=== PATIENT | male | born 1950 | race Hispanic/Latino ===

== ENCOUNTER 2020-08-06 06:01 | Observation (INO) | payer OTHER, MEDICARE ==
[~2020-08-06] VITALS: Ht 172.7 cm; Wt 119.3 kg
[2020-08-06 06:19] LABS: BASOPHILS % (AUTO) 0.9 % (0.0-5.0); EOSINOPHILS % (AUTO) 2.3 % (0.0-8.0); HEMATOCRIT 36.3 % (42-54); LYMPHOCYTES % (AUTO) 23.3 % (21.0-51.0); MEAN CORPUSCULAR HEMOGLOBIN 30.1 pg (27.0-33.0); MEAN CORPUSCULAR HGB CONC 32.5 g/dL (32.0-36.0); MEAN CORPUSCULAR VOLUME 92.6 fL (79-99); NEUTROPHILS % (AUTO) 64.2 % (40.0-77.0); PLATELET COUNT (AUTO) 351 K/uL (130-400); RED BLOOD CELL COUNT(AUTO) 3.92 MIL/uL (4.50-6.20); RED CELL DISTRIBUTION WIDTH 12.2 % (11.0-15.5); WHITE BLOOD COUNT (AUTO) 11.8 K/uL (4.8-10.8)
[2020-08-06 06:35] LABS: BILIRUBIN,TOTAL 0.9 mg/dL (0.2-1.0); CREATININE 1.2 mg/dL (0.5-1.5); POTASSIUM 4.4 mmol/L (3.5-5.1); TOTAL PROTEIN, SERUM 7.4 g/dL (6.0-8.3)
[2020-08-06 06:50] LABS: B-TYPE NATRIURETIC PEPTIDE 28 pg/mL (0-100)
[2020-08-06 07:00] LABS: INR 1.04 (0.85-1.15); PROTHROMBIN TIME 11.3 SEC (9.6-11.6)
[2020-08-06 07:01] LABS: PARTIAL THROMBOPLASTIN TIME 27.7 SEC (26.3-35.5)
[2020-08-06] MEDS ORDERED: IOHEXOL 350 MG/ML 100ML INFUS..BTL IV ONE (07:11)
[2020-08-06] MEDS ORDERED: LABETALOL 20 MG/4 ML DISP.SYRIN IV PRN (08:00)
[2020-08-06] MEDS ORDERED: ACETAMINOPHEN 650 MG SUPPOSITORY RC PRN (08:00)
[2020-08-06] MEDS ORDERED: MORPHINE SULFATE 2 MG/ML 1ML SYG IVP PRN (08:00)
[2020-08-06] MEDS ORDERED: ACETAMINOPHEN 325 MG TAB PO PRN (08:00)
[2020-08-06] MEDS: SODIUM CHLORIDE 0.9% 1000ML 1,000 ML IV SCH ×2 (08:00→21:20)
[2020-08-06] MEDS ORDERED: CLONIDINE HCL 0.1 MG TABLET PO PRN (08:00)
[2020-08-06] MEDS ORDERED: VANCOMYCIN 1GM+NS 250ML IV SCH (08:00)
[2020-08-06] MEDS ORDERED: VANCOMYCIN PROTOCOL PER PHARMACY IV SCH (08:00)
[2020-08-06] MEDS ORDERED: ONDANSETRON HCL 4 MG/2 ML VIAL IVP PRN (08:00)
[2020-08-06 08:39] LABS: APPEARANCE,URINE Clear (CLEAR); BILIRUBIN,URINE Negative (NEGATIVE); COLOR,URINE Yellow (YELLOW); GLUCOSE, URINE (UA) Negative (NEGATIVE); KETONES,URINE Negative (NEGATIVE); LEUKOCYTE ESTERASE ,URINE Negative (NEGATIVE); NITRATE,URINE Negative (NEGATIVE); OCCULT BLOOD,URINE Negative (NEGATIVE); PH,URINE 6.5 (5.0-8.0); PROTEIN,URINE Negative (NEGATIVE)
[2020-08-06] MEDS ORDERED: ASPIRIN 81MG TAB.CHEW PO SCH (09:00)
[2020-08-06] MEDS: ENOXAPARIN SODIUM 40 MG/0.4 ML SYRINGE SQ SCH (09:00)
[2020-08-06] MEDS: PANTOPRAZOLE SODIUM 40 MG TABLET.DR PO SCH (09:00)
[2020-08-06 09:06] LABS: CREATINE KINASE, TOTAL 114 U/L (21-232); MYOGLOBIN 47 ng/mL (10-92); TROPONIN I < 0.04 ng/mL (0.00-0.06)
[2020-08-06] MEDS ORDERED: SODIUM CHLORIDE 0.9% 1000ML 1,000 ML IV ONE (09:20)
[2020-08-06] MEDS ORDERED: ZOSYN 3.375GM+NS 50ML 50 ML IV ONE (09:20)
[2020-08-06] MEDS ORDERED: PANTOPRAZOLE SODIUM 40 MG TABLET.DR ONE (09:45)
[2020-08-06] MEDS ORDERED: ENOXAPARIN SODIUM 40 MG/0.4 ML SYRINGE SQ ONE (09:45)
[2020-08-06] MEDS ORDERED: ASPIRIN 81MG TAB.CHEW ONE (09:45)
[2020-08-06 10:30] VITALS: BP 127/68
[2020-08-06] MEDS ORDERED: PANT40TA54 PO (11:57)
[2020-08-06] MEDS ORDERED: SIMV-46 PO (11:57)
[2020-08-06] MEDS ORDERED: BISA10SU11 RC (11:57)
[2020-08-06] MEDS ORDERED: CELE-84 PO (11:57)
[2020-08-06] MEDS ORDERED: METO50TA18 PO (11:57)
[2020-08-06] MEDS ORDERED: KETO30VI4 IM (11:57)
[2020-08-06] MEDS ORDERED: ACET-2123 PO (11:57)
[2020-08-06] MEDS ORDERED: PREG50CA63 PO (11:57)
[2020-08-06] MEDS ORDERED: FAMO20TA8 PO (11:57)
[2020-08-06] MEDS ORDERED: POLY17PO52 PO (11:57)
[2020-08-06] MEDS ORDERED: AEC81 PO (11:57)
[2020-08-06] MEDS ORDERED: HYDR12.54 PO (11:57)
[2020-08-06] MEDS ORDERED: LISI20TA24 PO (11:57)
[2020-08-06] MEDS ORDERED: CHOL100046 PO (11:57)
[2020-08-06] MEDS ORDERED: HYDR-4060 PO (12:06)
[2020-08-06] MEDS ORDERED: HYDROCODONE/ACETAMINOPHEN 5/325 MG TAB PO PRN ×2 (12:15→13:45)
[2020-08-06] MEDS: ALBUTEROL SULFATE 0.083% 2.5 MG/3 ML INH IH SCH ×2 (12:37→18:18)
[2020-08-06] MEDS ORDERED: COMPOUND IV REFRIGERATED 1 EACH IVSOLN MISC PRN (12:45)
[2020-08-06] MEDS: HYDROCODONE/ACETAMINOPHEN 10/325 MG TAB PO PRN ×2 (12:50→21:24)
[2020-08-06] MEDS ORDERED: VANCOMYCIN 2 GM in SODIUM CHLORIDE 0.9% 500ML 500 ML IV ONE (13:00)
[2020-08-06] MEDS ORDERED: ACETAMINOPHEN EXTRA STRENGTH 500 MG TABLET PO PRN (13:45)
[2020-08-06] MEDS ORDERED: BISACODYL 10 MG SUPP.RECT RC PRN (13:45)
[2020-08-06 14:01] LABS: CREATINE KINASE, TOTAL 92 U/L (21-232); MYOGLOBIN 46 ng/mL (10-92); TROPONIN I < 0.04 ng/mL (0.00-0.06)
[2020-08-06 16:00] VITALS: BP 121/70
[2020-08-06] MEDS: ZOSYN 3.375GM +NS 50ML IV SCH (18:24)
[2020-08-06 20:00] VITALS: BP 129/83
[2020-08-06 20:51] LABS: CREATINE KINASE, TOTAL 89 U/L (21-232)
[2020-08-06] MEDS ORDERED: FAMOTIDINE 20MG TAB 20 MG TAB PO SCH (21:00)
[2020-08-06] MEDS: SIMVASTATIN 20 MG TABLET PO SCH (21:24)
[2020-08-06] MEDS: CELECOXIB 200 MG CAP PO SCH (21:24)
[2020-08-06] MEDS: VANCOMYCIN 750MG + NS 250 ML IV SCH ×2 (21:24)
[2020-08-06 22:24] LABS: MYOGLOBIN 39 ng/mL (10-92); TROPONIN I < 0.04 ng/mL (0.00-0.06)
[2020-08-07] VITALS: BP 114/63
[2020-08-07] MEDS: ZOSYN 3.375GM +NS 50ML IV SCH ×2 (01:07→08:54)
[2020-08-07 04:00] VITALS: BP 115/56
[2020-08-07 05:31] LABS: HEMATOCRIT 34.6 % (42-54); MEAN CORPUSCULAR HEMOGLOBIN 29.4 pg (27.0-33.0); MEAN CORPUSCULAR HGB CONC 31.8 g/dL (32.0-36.0); MEAN CORPUSCULAR VOLUME 92.5 fL (79-99); RED BLOOD CELL COUNT(AUTO) 3.74 MIL/uL (4.50-6.20); RED CELL DISTRIBUTION WIDTH 12.3 % (11.0-15.5); WHITE BLOOD COUNT (AUTO) 9.6 K/uL (4.8-10.8)
[2020-08-07 05:33] LABS: INR 1.04 (0.85-1.15); PROTHROMBIN TIME 11.3 SEC (9.6-11.6)
[2020-08-07 05:51] LABS: CREATININE 1.1 mg/dL (0.5-1.5); MAGNESIUM 1.9 mg/dL (1.80-2.40); POTASSIUM 4.4 mmol/L (3.5-5.1)
[2020-08-07 08:04] VITALS: BP 127/71
[2020-08-07] MEDS: ASPIRIN 81 MG EC TAB PO SCH (08:40)
[2020-08-07] MEDS: CELECOXIB 200 MG CAP PO SCH ×2 (08:41→20:26)
[2020-08-07] MEDS: METOPROLOL SUCCINATE 50 MG TAB.SR.24H PO SCH (08:41)
[2020-08-07] MEDS: PANTOPRAZOLE SODIUM 40 MG TABLET.DR PO SCH (08:41)
[2020-08-07] MEDS: PREGABALIN 25 MG CAP PO SCH (08:41)
[2020-08-07] MEDS: HYDROCODONE/ACETAMINOPHEN 10/325 MG TAB PO PRN ×2 (08:42→20:27)
[2020-08-07] MEDS: POLYETHYLENE GLYCOL 3350 17 GM POWD.PACK PO SCH (08:43)
[2020-08-07] MEDS: VANCOMYCIN 750MG + NS 250 ML IV SCH ×2 (08:43)
[2020-08-07] MEDS: ENOXAPARIN SODIUM 40 MG/0.4 ML SYRINGE SQ SCH (08:43)
[2020-08-07] MEDS: (Cholecalciferol (Vitamin D3) (Vitamin D3) 25 MCG) PO SCH (08:46)
[2020-08-07] MEDS ORDERED: NON-FORMULARY MEDICATION 1 EACH (Cholecalciferol (Vitamin D3) (Vitamin D3) 25 MCG) PO SCH (09:00)
[2020-08-07] MEDS ORDERED: NON-FORMULARY MEDICATION 1 EACH (Pregabalin 50 MG) PO SCH (09:00)
[2020-08-07] MEDS ORDERED: NON-FORMULARY MEDICATION 1 EACH (Simvastatin 40 MG) PO SCH (09:00)
[2020-08-07] MEDS ORDERED: LISINOPRIL 20 MG TABLET PO SCH (09:00)
[2020-08-07] MEDS ORDERED: PANTOPRAZOLE SODIUM 40 MG TABLET.DR PO SCH (09:00)
[2020-08-07 11:31] VITALS: BP 115/62
[2020-08-07] MEDS: ALBUTEROL SULFATE 0.083% 2.5 MG/3 ML INH IH SCH ×3 (12:00→18:00)
[2020-08-07] MEDS: HYDROCODONE/ACETAMINOPHEN 5/325 MG TAB PO PRN (13:34)
[2020-08-07 16:26] VITALS: BP 118/49
[2020-08-07 20:17] VITALS: BP 137/83
[2020-08-07] MEDS: SIMVASTATIN 20 MG TABLET PO SCH (20:26)
[2020-08-07] MEDS: DEXAMETHASONE 4 MG TAB PO SCH (20:28)
[2020-08-08] MEDS: ALBUTEROL SULFATE 0.083% 2.5 MG/3 ML INH IH SCH
[2020-08-08 00:40] VITALS: BP 158/72
[2020-08-08 04:52] VITALS: BP 103/64
[2020-08-08 04:55] LABS: HEMATOCRIT 37.4 % (42-54); MEAN CORPUSCULAR HEMOGLOBIN 29.8 pg (27.0-33.0); MEAN CORPUSCULAR HGB CONC 32.6 g/dL (32.0-36.0); MEAN CORPUSCULAR VOLUME 91.4 fL (79-99); RED BLOOD CELL COUNT(AUTO) 4.09 MIL/uL (4.50-6.20); WHITE BLOOD COUNT (AUTO) 13.6 K/uL (4.8-10.8)
[2020-08-08 05:06] LABS: CREATININE 1.1 mg/dL (0.5-1.5); POTASSIUM 5.7 mmol/L (3.5-5.1)
[2020-08-08] MEDS: HYDROCODONE/ACETAMINOPHEN 10/325 MG TAB PO PRN (05:13)
[2020-08-08 07:30] VITALS: BP 114/70
[2020-08-08] MEDS: (Cholecalciferol (Vitamin D3) (Vitamin D3) 25 MCG) PO SCH (09:00)
[2020-08-08] MEDS ORDERED: SODIUM POLYSTYRENE SULFONATE 15 GM/60 ML ML PO SCH ×2 (09:00→15:00)
[2020-08-08] MEDS: POLYETHYLENE GLYCOL 3350 17 GM POWD.PACK PO SCH (09:37)
[2020-08-08] MEDS: ASPIRIN 81 MG EC TAB PO SCH (09:38)
[2020-08-08] MEDS: ENOXAPARIN SODIUM 40 MG/0.4 ML SYRINGE SQ SCH (09:38)
[2020-08-08] MEDS: DEXAMETHASONE 4 MG TAB PO SCH (09:39)
[2020-08-08] MEDS: HYDROCODONE/ACETAMINOPHEN 5/325 MG TAB PO PRN (09:39)
[2020-08-08] MEDS: METOPROLOL SUCCINATE 50 MG TAB.SR.24H PO SCH (09:39)
[2020-08-08] MEDS: PANTOPRAZOLE SODIUM 40 MG TABLET.DR PO SCH (09:39)
[2020-08-08] MEDS: CELECOXIB 200 MG CAP PO SCH (09:39)
[2020-08-08] MEDS: PREGABALIN 25 MG CAP PO SCH (09:40)
[2020-08-08] MEDS ORDERED: SODIUM POLYSTYRENE SULFONATE 15 GM/60 ML ML ONE (09:46)
[2020-08-08 11:00] VITALS: BP 112/73
[2020-08-08 16:00] VITALS: BP 119/69
== END 2020-08-08 19:32 ==
LOC: EDH 06:01 → INTOOBSV 07:58 → EDHIP 07:58 → 4CH 10:19
PROVIDERS: ADMIT Internal Medicine Critical Care Medicine; ATTEND Internal Medicine Critical Care Medicine
DX: R07.89 Other chest pain (principal); R06.02 Shortness of breath; R61 Generalized hyperhidrosis; I10 Essential (primary) hypertension; E11.9 Type 2 diabetes mellitus without complications; G47.33 Obstructive sleep apnea (adult) (pediatric); E78.5 Hyperlipidemia, unspecified; I25.10 Atherosclerotic heart disease of native coronary artery without angina pectoris; M17.12 Unilateral primary osteoarthritis, left knee; E66.01 Morbid (severe) obesity due to excess calories; E87.5 Hyperkalemia; E78.00 Pure hypercholesterolemia, unspecified; F17.200 Nicotine dependence, unspecified, uncomplicated; Z96.652 Presence of left artificial knee joint; Z95.5 Presence of coronary angioplasty implant and graft; Z98.49 Cataract extraction status, unspecified eye; Z79.82 Long term (current) use of aspirin; Z79.899 Other long term (current) drug therapy; Z68.39 Body mass index [BMI] 39.0-39.9, adult
CPT/HCPCS: 36415 ×3; 70450; 71045; 71275; 72141; 80048 ×2; 80053; 80061; 80202; 81003; 82550 ×3; 83036; 83605; 83690; 83735; 83874 ×3; 83880; 84100; 84132; 84145; 84484 ×5; 85025; 85027 ×2; 85610 ×2; 85651; 85730; 87040 ×2; 87088; 93005; 93970; 94640 ×2; 94664; 96365; 96366 ×3; 96368; 96372 ×2; 96375; 97039 ×4; 97116 ×4; 97161; 97530 ×4; 99285; G0378 ×57; G8978; G8979; G8980; G8981; G8982; G8983; J1650 ×3; J2543 ×4; J3370; J7030; J7040; J8540 ×2; Q9967; J7050

== ENCOUNTER 2021-02-21 06:18 | Observation (INO) | payer OTHER, MEDICARE ==
[2021-02-19 14:41] LABS: BASOPHILS % (AUTO) 1.3 % (0.0-5.0); EOSINOPHILS % (AUTO) 1.5 % (0.0-8.0); HEMATOCRIT 42.4 % (42-54); LYMPHOCYTES % (AUTO) 29.5 % (21.0-51.0); MEAN CORPUSCULAR HEMOGLOBIN 28.6 pg (27.0-33.0); MEAN CORPUSCULAR HGB CONC 32.1 g/dL (32.0-36.0); MEAN CORPUSCULAR VOLUME 89.1 fL (79-99); MONOCYTES % (AUTO) 7.2 % (3.0-13.0); NEUTROPHILS % (AUTO) 60.2 % (40.0-77.0); PLATELET COUNT (AUTO) 270 K/uL (130-400); RED BLOOD CELL COUNT(AUTO) 4.76 MIL/uL (4.50-6.20); RED CELL DISTRIBUTION WIDTH 13.4 % (11.0-15.5); WHITE BLOOD COUNT (AUTO) 7.8 K/uL (4.8-10.8)
[2021-02-19 14:49] LABS: CREATININE 0.9 mg/dL (0.5-1.5); POTASSIUM 4.1 mmol/L (3.5-5.1)
[2021-02-19 14:52] LABS: INR 1.03 (0.85-1.15); PROTHROMBIN TIME 11.2 SEC (9.6-11.6)
[2021-02-19 14:54] LABS: APPEARANCE,URINE Clear (CLEAR); BILIRUBIN,URINE Negative (NEGATIVE); COLOR,URINE Yellow (YELLOW); GLUCOSE, URINE (UA) Negative (NEGATIVE); KETONES,URINE Negative (NEGATIVE); LEUKOCYTE ESTERASE ,URINE Negative (NEGATIVE); NITRATE,URINE Negative (NEGATIVE); OCCULT BLOOD,URINE Negative (NEGATIVE); PROTEIN,URINE Negative (NEGATIVE)
[2021-02-20 13:04] VITALS: BP 151/86
[2021-02-21] VITALS (24 sets, daily range): BP systolic 125–160; BP diastolic 54–97
[~2021-02-21] VITALS: Ht 172.7 cm; Wt 160.6 kg
[~2021-02-21 06:18] MED LIST: AEC81 PO; CETI10TA57 PO; FLUT9.9S NS; LANS15CA17 PO; LISI1TAB51 PO; METO-391 PO; SIMV-46 PO
[2021-02-21] MEDS ORDERED: CEFAZOLIN SODIUM 1 GM VIAL ONE ×4 (06:53→18:33)
[2021-02-21] MEDS ORDERED: LACTATED RINGERS 1000ML 1,000 ML IV ONE (06:53)
[2021-02-21] MEDS ORDERED: TRANEXAMIC ACID 1000MG/10ML ONE ×2 (07:31→11:20)
[2021-02-21] MEDS ORDERED: MIDAZOLAM HCL 1 MG/ML 2ML VIAL ONE (08:17)
[2021-02-21] MEDS ORDERED: LIDOCAINE HCL-MPF 1% 5ML AMP IJ ONE (08:25)
[2021-02-21] MEDS ORDERED: SUCCINYLCHOLINE CHLORIDE 20 MG/ML 10 ML VIAL ONE (08:25)
[2021-02-21] MEDS ORDERED: ROCURONIUM 10MG/1ML SYR 10 MG/ML ML ONE (08:26)
[2021-02-21] MEDS ORDERED: FENTANYL CITRATE PF 50 MCG/1 ML 2ML VIAL ONE (08:26)
[2021-02-21] MEDS ORDERED: PROPOFOL 10 MG/ML 20ML VIAL IV ONE (08:26)
[2021-02-21] MEDS ORDERED: DEXAMETHASONE SOD PHOSPHATE 10MG/ML 1ML VIAL ONE (08:40)
[2021-02-21] MEDS: CEFAZOLIN SODIUM 1 GM VIAL IVP ONE ×2 (08:45→08:46)
[2021-02-21] MEDS ORDERED: NEOSTIGMINE 5MG/5ML SYR IV ONE (10:55)
[2021-02-21] MEDS ORDERED: FERROUS FUMARATE 324 MG TABLET PO PRN (11:00)
[2021-02-21] MEDS ORDERED: ONDANSETRON 4MG INJ IVP PRN (11:00)
[2021-02-21] MEDS ORDERED: POTASSIUM CHLORIDE 10% ELIXIR 20 MEQ/15 ML UDCUP PO PRN (11:00)
[2021-02-21] MEDS ORDERED: POTASSIUM CHLORIDE 20MEQ/100ML 100 ML IV PRN (11:00)
[2021-02-21] MEDS ORDERED: TEMAZEPAM 15 MG CAPSULE PO PRN (11:00)
[2021-02-21] MEDS ORDERED: LIDOCAINE HCL-MPF 1% 2ML VIAL IV PRN (11:00)
[2021-02-21] MEDS ORDERED: OXYCODONE HCL 5 MG TAB PO PRN (11:00)
[2021-02-21] MEDS ORDERED: DiphenhydrAMINE HCL 50 MG/ML VIAL IVP PRN (11:00)
[2021-02-21] MEDS ORDERED: KCL 20 MEQ ERTAB PO PRN (11:00)
[2021-02-21] MEDS ORDERED: CALCIUM CARB 500MG PO PRN (11:00)
[2021-02-21] MEDS: ACETAMINOPHEN 500 MG TABLET PO SCH ×2 (11:00→18:36)
[2021-02-21] MEDS: 0.9%NACL 1000ML 1,000 ML IV SCH ×2 (11:00→22:21)
[2021-02-21] MEDS ORDERED: ONDANSETRON 4MG INJ ONE (11:02)
[2021-02-21] MEDS ORDERED: MEPERIDINE-PF 25 MG/ML SYG ONE ×2 (11:27→11:56)
[2021-02-21] MEDS: KETOROLAC 15MG/ML VIAL (15MG/ML) IV PRN ×2 (12:48→20:13)
[2021-02-21] MEDS: OXYCODONE HCL 5 MG TAB PO PRN ×3 (13:32→22:19)
[2021-02-21] MEDS: TRAMADOL HCL 50 MG TABLET PO PRN (15:13)
[2021-02-21] MEDS: CEFAZOLIN 3GM /D5W 100ML 100 ML IV SCH (16:00)
[2021-02-21] MEDS: PREGABALIN 25 MG CAP PO SCH (20:10)
[2021-02-21] MEDS: CELECOXIB 200 MG CAP PO SCH (20:10)
[2021-02-21] MEDS ORDERED: ASPIRIN 81 MG EC TAB PO SCH (21:00)
[2021-02-21] MEDS ORDERED: FAMOTIDINE 20MG TAB PO SCH (21:00)
[2021-02-22] VITALS: BP 139/73
[2021-02-22] MEDS ORDERED: CEFAZOLIN SODIUM 1 GM VIAL ONE (00:24)
[2021-02-22] MEDS: CEFAZOLIN 3GM /D5W 100ML 100 ML IV SCH (00:35)
[2021-02-22] MEDS: TRAMADOL HCL 50 MG TABLET PO PRN ×2 (00:39→08:38)
[2021-02-22] MEDS: ACETAMINOPHEN 500 MG TABLET PO SCH ×3 (03:28→19:22)
[2021-02-22 04:00] VITALS: BP 123/72
[2021-02-22 04:57] LABS: HEMATOCRIT 36.2 % (42-54); MEAN CORPUSCULAR HEMOGLOBIN 28.9 pg (27.0-33.0); MEAN CORPUSCULAR HGB CONC 32.6 g/dL (32.0-36.0); MEAN CORPUSCULAR VOLUME 88.5 fL (79-99); RED BLOOD CELL COUNT(AUTO) 4.09 MIL/uL (4.50-6.20); WHITE BLOOD COUNT (AUTO) 16.5 K/uL (4.8-10.8)
[2021-02-22 05:04] LABS: CREATININE 1.4 mg/dL (0.5-1.5); POTASSIUM 4.4 mmol/L (3.5-5.1)
[2021-02-22] MEDS: OXYCODONE HCL 5 MG TAB PO PRN ×3 (06:24→23:43)
[2021-02-22] MEDS: 0.9%NACL 1000ML 1,000 ML IV SCH (06:30)
[2021-02-22 07:30] VITALS: BP 100/71
[2021-02-22] MEDS: PANTOPRAZOLE 40 MG TAB DR PO SCH (08:36)
[2021-02-22] MEDS: METOPROLOL SUCCINATE 50 MG TAB.SR.24H PO SCH (08:36)
[2021-02-22] MEDS: CETIRIZINE HCL 5 MG TABLET PO SCH (08:36)
[2021-02-22] MEDS: TAMSULOSIN HCL 0.4 MG CAP.ER.24H PO SCH (08:38)
[2021-02-22] MEDS: PREGABALIN 25 MG CAP PO SCH ×2 (08:39→19:21)
[2021-02-22] MEDS: ASPIRIN 81 MG EC TAB PO SCH (08:40)
[2021-02-22] MEDS: SIMVASTATIN 20 MG TABLET PO SCH (08:40)
[2021-02-22] MEDS: CELECOXIB 200 MG CAP PO SCH ×2 (08:41→19:21)
[2021-02-22] MEDS: HYDROCHLOROTHIAZIDE 25 MG TABLET PO SCH (08:43)
[2021-02-22] MEDS: LISINOPRIL 20 MG TABLET PO SCH (08:44)
[2021-02-22] MEDS: POLYETHYLENE GLYCOL 3350 17 GM POWD.PACK PO SCH (08:46)
[2021-02-22 11:00] VITALS: BP 92/55
[2021-02-22 16:00] VITALS: BP 110/63
[2021-02-22 19:49] VITALS: BP 107/54
[2021-02-22] MEDS: FLUTICASONE PROPIONATE 50MCG/SPRAY 16 GM BOTTLE EN SCH (21:23)
[2021-02-23] VITALS: BP 109/61
[2021-02-23 04:00] VITALS: BP 98/63
[2021-02-23] MEDS: ACETAMINOPHEN 500 MG TABLET PO SCH ×2 (05:56→14:00)
[2021-02-23 07:50] VITALS: BP 149/74
[2021-02-23] MEDS: CETIRIZINE HCL 5 MG TABLET PO SCH (08:29)
[2021-02-23] MEDS: TAMSULOSIN HCL 0.4 MG CAP.ER.24H PO SCH (08:29)
[2021-02-23] MEDS: PREGABALIN 25 MG CAP PO SCH (08:29)
[2021-02-23] MEDS: SIMVASTATIN 20 MG TABLET PO SCH (08:29)
[2021-02-23] MEDS: PANTOPRAZOLE 40 MG TAB DR PO SCH (08:29)
[2021-02-23] MEDS: LISINOPRIL 20 MG TABLET PO SCH (08:30)
[2021-02-23] MEDS: HYDROCHLOROTHIAZIDE 25 MG TABLET PO SCH (08:35)
[2021-02-23] MEDS: METOPROLOL SUCCINATE 50 MG TAB.SR.24H PO SCH (08:35)
[2021-02-23] MEDS: CELECOXIB 200 MG CAP PO SCH (08:35)
[2021-02-23] MEDS: ASPIRIN 81 MG EC TAB PO SCH (08:35)
[2021-02-23] MEDS: OXYCODONE HCL 5 MG TAB PO PRN ×2 (08:36→14:03)
[2021-02-23] MEDS: POLYETHYLENE GLYCOL 3350 17 GM POWD.PACK PO SCH (08:37)
[2021-02-23] MEDS: FLUTICASONE PROPIONATE 50MCG/SPRAY 16 GM BOTTLE EN SCH (08:37)
[2021-02-23 11:08] VITALS: BP 98/72
[2021-02-23] MEDS ORDERED: HYDR-4060 PO (15:51)
[2021-02-23] MEDS ORDERED: AEC81 PO (15:51)
[2021-02-23 16:12] VITALS: BP 94/57
[2021-02-23] MEDS ORDERED: ASPIRIN 81 MG EC TAB PO SCH (21:00)
[2021-02-24] MEDS ORDERED: BISACODYL 10 MG SUPP.RECT RC PRN (11:00)
== END 2021-02-23 18:55 ==
LOC: DAH 06:18 → DAHIP 06:19 → 3CH 12:15
PROVIDERS: ADMIT Orthopaedic Surgery; ATTEND Orthopaedic Surgery
DX: M17.11 Unilateral primary osteoarthritis, right knee (principal); Z20.822 Contact with and (suspected) exposure to COVID-19; I10 Essential (primary) hypertension; D64.9 Anemia, unspecified; M25.561 Pain in right knee; G89.29 Other chronic pain; F17.210 Nicotine dependence, cigarettes, uncomplicated; Z96.652 Presence of left artificial knee joint; Z79.899 Other long term (current) drug therapy; Z98.890 Other specified postprocedural states
CPT/HCPCS: 27447; 36415 ×2; 80048 ×2; 81003; 85025; 85027; 85610; 87088; 87635; 87641; 88304; 88311; 96361 ×2; 96365; 96366; 96375; 96376; 97039 ×4; 97116 ×4; 97161; 97530 ×3; A4215; A4216; A4221; A4222; A4223 ×2; A4600; A4649 ×4; A4663; A4930 ×4; A5120; A9272; C1776; C9803; G0378 ×54; J0330; J0690 ×5; J1100; J1885 ×2; J2175 ×2; J2250; J2405; J2704; J2710; J3010; J3490 ×3; J7120 ×2